=== PATIENT | male | born 1980 | race Two or more races ===

== ENCOUNTER 2023-11-13 11:36 | Inpatient (IN) | payer MEDICAID, OTHER ==
[~2023-11-13] VITALS: Ht 182.9 cm; Wt 103.2 kg
[2023-11-13 12:46] VITALS: PULSE 102; RESP 25; O2SAT 95
[2023-11-13] MEDS ORDERED: VANCOMYCIN PER PHARMACY 0 MG IV SCH (13:15)
[2023-11-13] MEDS: SODIUM CHLORIDE 0.9% 1,000 ML IV ONE ×2 (13:33→15:57)
[2023-11-13] MEDS: PIPERACILLIN-TAZOB 3.375GM 100 ML IV ONE (13:33)
[2023-11-13 13:57] LABS: Basophils # (auto) 0 10 ^3/uL (0-0.2); Basophils % (auto) 0.3 % (0.0-2.0); Eosinophils # (auto) 0 10 ^3/uL (0-0.8); Eosinophils % (auto) 0.2 % (0.0-7.0); Hematocrit 45.6 % (41.0-53.0); Hemoglobin 15.5 g/dL (13.5-17.5); Lymphocytes # (auto) 2.1 10 ^3/uL (0.4-5.4); Lymphocytes % (auto) 14.6 % (10.0-50.0); Mean Corpuscular Hemoglobin 28.7 pg (28.0-32.0); Mean Corpuscular Volume 84.4 fL (80.0-100.0); Monocytes # (auto) 1.1 10 ^3/uL (0-1.3); Neutrophils # (auto) 10.8 10 ^3/uL (1.6-8.6); Neutrophils % (auto) 76.9 % (37.0-80.0); Nucleated Red Blood Cells % 0.1 %; Platelet Count (auto) 374 10^3/uL (140-450); Red Blood Cells 5.41 10^6/uL (4.5-5.90); Red Cell Distribution Width 15.3 % (11.8-14.3); White Blood Cell 14.1 10^3/uL (4.4-10.8)
[2023-11-13] MEDS: VANCOMYCIN 1GM/200ML 200 ML IV SCH (14:00)
[2023-11-13 14:13] LABS: Alanine Aminotransferase 28 U/L (7-40); Albumin 3.9 g/dL (3.2-4.8); Alkaline Phosphatase 85 U/L (46-116); Anion Gap 8 (5-15); Aspartate Aminotransferase 12 U/L (13-40); BUN/Creatinine Ratio 16.2 (10.0-20.0); Blood Urea Nitrogen 11 mg/dL (9-23); Calcium 8.9 mg/dL (8.7-10.4); Carbon Dioxide 23 mmol/L (20-30); Chloride 102 mmol/L (98-107); Glucose 109 mg/dL (74-106); Potassium 3.7 mmol/L (3.5-5.1); Sodium 133 mmol/L (136-145)
[2023-11-13 14:14] LABS: Total Protein 7.8 g/dL (5.7-8.2)
[2023-11-13 14:22] LABS: CRP High Sensitivity 11.53 mg/dL (<1.0)
[2023-11-13 14:57] LABS: Erythrocyte Sedimentation Rate 52 mm/hr (0-20)
[2023-11-13] MEDS: IOHEXOL 300 MG/ML 100ML BOTTLE IJ ONE (15:18)
[2023-11-13] MEDS: diphenhdrAMINE HCL 50 MG/1 ML VL IV ONE (15:56)
[2023-11-13 19:45] VITALS: O2SAT 95
[2023-11-13] MEDS: levoFLOXacin 750MG 150 ML IV ONE (21:19)
[2023-11-13] MEDS ORDERED: ONDANSETRON HCL 4 MG/2 ML VIAL IV PRN (22:15)
[2023-11-13] MEDS ORDERED: HYDROcodone-ACET 5/325MG TAB PO PRN (22:15)
[2023-11-13] MEDS ORDERED: ACETAMINOPHEN 325 MG TAB PO PRN (22:15)
[2023-11-13] MEDS ORDERED: MORPHINE SULFATE INJ 2 MG/ml SYRG IV PRN (22:15)
[2023-11-13] MEDS ORDERED: NITROGLYCERIN 0.4 MG SL TAB SL PRN (22:15)
[2023-11-13] MEDS ORDERED: DOCUSATE SOD 100 MG CAP PO PRN (22:15)
[2023-11-13] MEDS: SODIUM CHLORIDE 0.9% 1,000 ML IV SCH (22:41)
[2023-11-13] MEDS: PIPERACILLIN-TAZOB 3.375GM 100 ML IV SCH (23:57)
[2023-11-14 00:10] VITALS: RESP 20
[2023-11-14 05:00] VITALS: BP 104/71; PULSE 90; RESP 16; TEMP 97; O2SAT 95
[2023-11-14 08:00] VITALS: O2SAT 93
[2023-11-14 09:00] VITALS: BP 138/87; PULSE 73; RESP 18; TEMP 97.2; O2SAT 98
[2023-11-14] MEDS ORDERED: IBUPROFEN 600 MG TAB PO PRN (09:00)
[2023-11-14] MEDS: ENOXAPARIN SOD 40 MG/0.4 ML SYRINGE SC SCH (10:00)
[2023-11-14] MEDS: ZINC SULFATE 220mg CAP or TAB PO SCH (11:03)
[2023-11-14] MEDS: ASCORBIC ACID 500 MG TAB PO SCH (11:03)
[2023-11-14] MEDS: MORPHINE SULFATE 4 MG/ML SYR/VIAL IV PRN (11:11)
[2023-11-14 12:51] VITALS: BP 131/85; PULSE 92; RESP 20; TEMP 99.2; O2SAT 92
[2023-11-14 17:00] VITALS: BP 143/82; PULSE 83; RESP 20; TEMP 97; O2SAT 95
[2023-11-14] MEDS: ALPRAZolam 0.25 MG TAB PO PRN (20:28)
[2023-11-14] MEDS: CARISOPRODOL 350 MG TAB PO PRN (20:29)
[2023-11-15 13:00] VITALS: BP 114/71; PULSE 87; RESP 18; TEMP 97; O2SAT 93
[2023-11-15 20:00] VITALS: PULSE 83; RESP 17; O2SAT 97
[2023-11-15 22:00] VITALS: BP 123/89; PULSE 83; RESP 16; TEMP 97.7; O2SAT 97
[2023-11-16 20:00] VITALS: PULSE 78; RESP 16; O2SAT 99
[2023-11-16 22:00] VITALS: BP 123/93; PULSE 77; RESP 16; TEMP 98.6; O2SAT 94
[2023-11-17] VITALS (7 sets, daily range): BP systolic 98–141; BP diastolic 55–79; PULSE 62–79; RESP 17–19; TEMP 97.4–98.3; O2SAT 93–98
[2023-11-17] MEDS: CLINDAMYCIN 300MG IV 50 ML IV SCH (13:31)
[2023-11-18 08:05] VITALS: PULSE 61; RESP 19; O2SAT 93
[2023-11-18 09:00] VITALS: BP 109/66; PULSE 61; RESP 19; O2SAT 92
[2023-11-18 13:00] VITALS: BP 116/69; PULSE 67; RESP 19; TEMP 98.5; O2SAT 99
[2023-11-18] MEDS ORDERED: SACC250C PO (14:24)
[2023-11-18] MEDS ORDERED: CLIN1CAP70 PO (14:24)
[2023-11-18 17:04] VITALS: BP 109/69; PULSE 66; RESP 17; TEMP 98.6; O2SAT 95
== END 2023-11-18 16:56 | DRG 720 ==
LOC: EDBD 11:36 → ER 11:36 → OVERFLOW 22:17 → WEST WING 23:58
PROVIDERS: ADMIT Nurse Practitioner Family; ATTEND Nurse Practitioner Acute Care
DX: A41.9 Sepsis, unspecified organism (principal); E87.1 Hypo-osmolality and hyponatremia; G82.20 Paraplegia, unspecified; Z74.01 Bed confinement status; E66.9 Obesity, unspecified; F20.9 Schizophrenia, unspecified; H54.62 Unqualified visual loss, left eye, normal vision right eye; L03.116 Cellulitis of left lower limb; L03.115 Cellulitis of right lower limb; B95.62 Methicillin resistant Staphylococcus aureus infection as the cause of diseases classified elsewhere; Z88.1 Allergy status to other antibiotic agents; Z88.5 Allergy status to narcotic agent; Z68.32 Body mass index [BMI] 32.0-32.9, adult
CPT/HCPCS: 36415; 74177; 80053; 83605; 83880; 85025; 85652; 86141; 87040; 87077; 87186; 87205; 96365; 96375; G0378; J1956; J2543; J3490

== ENCOUNTER 2025-02-07 11:22 | Inpatient (IN) | payer OTHER, MEDICAID ==
[~2025-02-07] VITALS: Ht 177.8 cm; Wt 120.2 kg
[~2025-02-07 11:22] MED LIST: CLIN1CAP70 PO; SACC250C PO
--- NOTE | 2025-02-07 11:43 | ED.PDOC ---
History of Present Illness(SKN HPI Comments This is a 44 year old male MERY presenting to the ED with chief complaint of rash. EMS reports patient is coming from [facility] care facility for a worsening rash to the back and buttocks for the past few days. EMS relays that the patient does not get regular cleaning care, but is unsure if his rash is due to developing bed sores. EMS states patient normally sleeps on the floor due to not liking the bedding provided. Patient denies any fever, chills, back pain, or N/V. Chief Complaint: Rash Time Seen by MD: 11:41 Primary Care Provider: UNKNOWN NAME History of Present Illness: Nurses Notes, Toy Stuffer Notes, Medications, Allergies Allergies: Coded Allergies: Vancomycin (Verified Allergy, Intermediate, 11/13/23) HIVES Acetaminophen (Verified Adverse Reaction, Mild, Hives, 11/13/23) Hydrocodone (Verified Adverse Reaction, Mild, Hives, 11/13/23) Tramadol (Verified Adverse Reaction, Mild, Hives, 11/13/23) Home Meds Active Scripts Yeast (S. Boulardii)(S. Cerevi (Florastor) 250 Mg Cap, 250 MG PO DAILY for 21 Days, #2 CAP Prov:MALCOLM HALLMAN DIRECTOR PROCESS 11/18/23 Clindamycin Hcl (Clindamycin Hcl) 300 Mg Cap, 1 CAP PO TID for 10 Days, #30 CAP Prov:MALCOLM HALLMAN DIRECTOR PROCESS 11/18/23 Information Source: Patient, Emergency Med Personnel Mode of Arrival: EMS Severity: Moderate Timing: Days Duration: Since onset Prehospital treatment: None Location: Back, Buttock Mechanism: Spontaneous Onset Developed: Rash Occurence: Indoors Object: None Condition of Object: None Retained Foreign Body: No Wound Type: Other Immunization Status of Animal: NA Tetanus: Unknown Past Medical History PAST MEDICAL HISTORY: Schizophrenia, Seizures Past Medical History (Other): Paraplegic Surgical History: Denies all surgeries Family History Family History: Reviewed,noncontributory to illness Social History Smoker: Non-Smoker Alcohol: Denies ETOH Use Drugs: Denies Drug Use Lives In: Home Constitutional: denies: chills, diaphoresis, fatigue, fever, malaise, sweats, weakness, others EENTM: denies: blurred vision, double vision, ear bleeding, ear discharge, ear drainage, ear pain, ear ringing, eye pain, eye redness, hearing loss, mouth pain, mouth swelling, nasal discharge, nose bleeding, nose congestion, nose pain, photophobia, tearing, throat pain, throat swelling, voice changes, others Respiratory: denies: cough, hemoptysis, orthopnea, SOB at rest, shortness of breath, SOB with excertion, stridor, wheezing, others Cardiovascular: denies: chest pain, dizzy spells, diaphoresis, Dyspnea on exertion, edema, irregular heart beat, left arm pain, lightheadedness, palpitations, PND, syncope, others Gastrointestinal: denies: abdomen distended, abdominal pain, blood streaked bowels, constipated, diarrhea, dysphagia, difficulty swallowing, hematemesis, melena, nausea, poor appetite, poor fluid intake, rectal bleeding, rectal pain, vomiting, others Genitourinary: denies: burning, dysuria, flank pain, frequency, hematuria, incontinence, penile discharge, penile sore, pain, testicle pain, testicle swelling, urgency, others Neurological: denies: dizziness, fainting, headache, left sided numbness, left sided weakness, numbness, paresthesia, pre-existing deficit, right sided numbness, right sided weakness, seizure, speech problems, tingling, tremors, weakness, others Musculoskeletal: denies: back pain, gout, joint pain, joint swelling, muscle pain, muscle stiffness, neck pain, others Integumetry: reports: rash; denies: bruises, change in color, change in hair/nails, dryness, laceration, lesions, lumps, wounds, others Allergic/Immunocompromised: denies: Difficulty Healing, Frequent Infections, Hives, Itching, others Hematologic/Lymphatic: denies: anemia, blood clots, easy bleeding, easy bruising, swollen glands, others Endocrine: denies: excessive hunger, excessive sweating, excessive thirst, excessive urination, flushing, intolerance to cold, intolerance to heat, unexplained weight gain, unexplained weight loss, others Psychiatric: denies: anxiety, bipolar disorder, depression, hopeless, panic disorder, schizophrenia, sleepless, suicidal, others All Other Systems: Reviewed and Negative Physical Exam General Appearance: Moderate Distress, Obese HEENT: Normal ENT Inspection, Pharynx Normal, TMs Normal Neck: Full Range of Motion, Non-Tender, Normal, Normal Inspection Respiratory: Chest Non-Tender, Lungs Clear, No Accessory Muscle Use, No Respiratory Distress, Normal Breath Sounds Cardiovascular: No Edema, No JVD, No Murmur, No Gallop, Normal Peripheral Pulses, Regular Rate/Rhythm Breast Exam: Deferred Gastrointestinal: No Organomegaly, Non Tender, No Pulsatile Mass, Normal Bowel Sounds, Soft Genitalia: Deferred Pelvic: Deferred Rectal: Deferred Extremities: No calf tenderness, Normal capillary refill, No pedal edema Musculoskeletal : Apperance: Normal Neurologic: Alert Cerebellar Function: NOT DONE Reflexes: NOT DONE Skin: Dry, Normal Color, Warm Peripheral Pulses: 3+ Radial (R), 3+ Radial (L) Lymphatic: No Adenopathy Was a procedure done? Was a procedure done?: No Differential Diagnosis (INTG) Differential Diagnosis: Cellulitis X-Ray, Labs, Meds, VS Vital Signs Date Time Temp Pulse Resp B/P (MAP) Pulse Ox O2 Delivery O2 Flow Rate FiO2 02/07/25 16:00 87 17 114/75 (88) 93 02/07/25 14:15 91 17 109/78 (88) 93 02/07/25 12:59 85 15 99 Room Air* 0 21 02/07/25 12:15 98.1 103 20 119/85 (96) 94 98.1 02/07/25 11:29 98.8 74 16 136/87 99 98.8 Lab Test 02/07/25 11:45 Range/Units White Blood Count 10.3 4.4-10.8 10^3/uL Red Blood Count 5.27 4.5-5.90 10^6/uL Hemoglobin 14.8 13.5-17.5 g/dL Hematocrit 44.4 41.0-53.0 % Mean Corpuscular Volume 84.3 80.0-100.0 fL Mean Corpuscular Hemoglobin 28.1 28.0-32.0 pg Mean Corpuscular Hemoglobin Concent 33.3 32.0-36.0 g/dL Red Cell Distribution Width 15.6 H 11.8-14.3 % Platelet Count 523 H 140-450 10^3/uL Mean Platelet Volume 7.9 6.9-10.8 fL Neutrophils (%) (Auto) 64.4 37.0-80.0 % Lymphocytes (%) (Auto) 20.7 10.0-50.0 % Monocytes (%) (Auto) 10.8 0.0-12.0 % Eosinophils (%) (Auto) 3.5 0.0-7.0 % Basophils (%) (Auto) 0.6 0.0-2.0 % Neutrophils # (Auto) 6.7 1.6-8.6 10 ^3/uL Lymphocytes # (Auto) 2.1 0.4-5.4 10 ^3/uL Monocytes # (Auto) 1.1 0-1.3 10 ^3/uL Eosinophils # (Auto) 0.4 0-0.8 10 ^3/uL Basophils # (Auto) 0.1 0-0.2 10 ^3/uL Nucleated Red Blood Cells 0.2 % Prothrombin Time 10.4 9.3-11.8 sec Prothrombin Time INR 0.98 0.9-1.15 Activated Partial Thromboplast Time 31.8 24.5-34.5 SEC Sodium Level 140 136-145 mmol/L Potassium Level 4.1 3.5-5.1 mmol/L Chloride Level 100 98-107 mmol/L Carbon Dioxide Level 30 20-31 mmol/L Anion Gap 10 5-15 Blood Urea Nitrogen 11 9-23 mg/dL Creatinine 0.69 L 0.700-1.30 mg/dL Glomerular Filtration Rate Calc 116 >90 mL/min BUN/Creatinine Ratio 15.9 10.0-20.0 Serum Glucose 91 74-106 mg/dL Lactic Acid Level 2.4 *H 0.4-2.0 mmol/L Calcium Level 9.4 8.7-10.4 mg/dL Total Bilirubin 0.2 0.2-1.0 mg/dL Aspartate Amino Transferase (AST) 21 13-40 U/L Alanine Aminotransferase (ALT) 42 H 7-40 U/L Alkaline Phosphatase 128 H 46-116 U/L Total Protein 8.5 H 5.7-8.2 g/dL Albumin 4.1 3.2-4.8 g/dL Current Medications Medications (Trade) Dose Ordered Sig/Yumiko Route Start Time Stop Time Status Last Admin Cefepime HCl 50 ml @ 12.5 mls/hr ONCE ONCE IV 02/07/25 11:45 02/07/25 15:44 DC 02/07/25 13:07 Sodium Chloride 1,000 ml @ 1,000 mls/hr Q1H ONCE IV 02/07/25 11:45 02/07/25 12:44 DC 02/07/25 13:[address] [address] Ph: [phone] DIAGNOSTIC IMAGING Diagnostic Imaging Report : [id number] Signed PATIENT: TYSON LEWIS ACCT: [id number] UNIT: [id number] : 1980 LOC: ER ROOM / BED: / AGE / SEX: 44 / M ADM STATUS: REG ER SERVICE 1135 ORDERING PHYSICIAN: XENIA MEEK MD PROCEDURE(s): CXRP - CHEST PORTABLE REASON: sob ORDER NUMBER(s): [id number], ACCESSION NUMBER(s): [id number] EXAM: XY CHEST PORTABLE Indication: sob Technique: Single frontal view of the chest was obtained Comparison: None FINDINGS: Lines and Tubes: None Lungs: No focal consolidation. Low lung volumes with bibasilar atelectasis. Pleura: No effusion. No pneumothorax. Cardiomediastinal contours: Unremarkable Bones: No acute osseous abnormality. IMPRESSION: Low lung volumes with bibasilar atelectasis.No acute cardiopulmonary disease. ATED BY: JEAN ORNELAS MD DICTATED DATE/TIME: 02/07/25 1231 SIGNED BY: JEAN ORNELAS MD SIGNED DATE/TIME: 02/07/25 1231 CC: Patient alert. He is obese. Chest x-ray reviewed does not show any acute process. Answering all questions. Chronic condition. He is bed ridden. Possible sepsis. Was given fluids. Was given antibiotics. He does have wound in his buttocks. Explained to the patient. Continue monitoring. Images Reviewed?: Images reviewed and evaluated by me Time of 1ST Reevaluation: 12:40 Reevaluation 1ST: Unchanged Patient Education/Counseling: Diagnosis, Treatment Family Education/Counseling: No Family Present SEPSIS Sepsis Screen Date sepsis recognized/suspect: Feb 07, 2025 Time Sepsis recognized/suspect: 1025 Recent Procedure: No On Antibiotic Therapy: No Respiratory Rate >20: No Heart Rate >90: No Temp<36 C (96.8 F) or >38.3 C: No SBP <90 or MAP <65 mmHG: No New Acute Mental Status Change: No Is the patient on CPAP, BIPAP,: No Physician Orders Chest Portable (02/07/25 11:35) Accucheck (02/07/25 11:35) Blood Culture (02/07/25 11:35) Notify Md If Map <65 Or Bp<90 (02/07/25 11:35) If Map<65 Start Vasopressor (02/07/25 11:35) Sepsis Reassesment After Fluid (02/07/25 12:35) Sodium Chloride 0.9% (02/07/25 11:45) Vital Signs Date Time Temp Pulse Resp B/P (MAP) Pulse Ox O2 Delivery O2 Flow Rate FiO2 02/07/25 16:00 87 17 114/75 (88) 93 02/07/25 14:15 91 17 109/78 (88) 93 02/07/25 12:59 85 15 99 Room Air* 0 21 02/07/25 12:15 98.1 103 20 119/85 (96) 94 98.1 02/07/25 11:29 98.8 74 16 136/87 99 98.8 Laboratory Tests Test 02/07/25 11:45 Lactic Acid Level 2.4 mmol/L (0.4-2.0) *H White Blood Count 10.3 10^3/uL (4.4-10.8) Medications Medications Dose Ordered Sig/Yumiko Route Start Time Stop Time Status Last Admin Dose Admin Cefepime HCl 50 ml @ 12.5 mls/hr ONCE ONCE IV 02/07/25 11:45 02/07/25 15:44 DC 02/07/25 13:07 Sodium Chloride 1,000 ml @ 1,000 mls/hr Q1H ONCE IV 02/07/25 11:45 02/07/25 12:44 DC 02/07/25 13:07 Departure 1 Departure Time of Disposition: 17:40 Impression: Primary Impression: Cellulitis Qualified Codes: L03.90 - Cellulitis, unspecified Additional Impression: Wound infection Disposition: 09 ADMITTED INPATIENT Admit to: Med Surg Condition: Guarded Critical Care Note Critical Care Time?: Yes (90 min-critical care time only) Stability Stability form required: No Heart Score Heart Score: Heart Score Response (Comments) Value History N/A 0 EKG N/A 0 Age N/A 0 Risk Factors N/A 0 Troponin N/A 0 Total 0 I personally scribed for XENIA MEEK MD ([email or web address]) on 02/07/25 at 11:43. Electronically submitted by Pankaj Kenyon ([email or web address]). I personally scribed for XENIA MEEK MD ([email or web address]) on 02/07/25 at 14:22. Electronically submitted by Pankaj Kenyon ([email or web address]). XENIA MEEK MD Feb 07, 2025 11:43
[2025-02-07 12:25] LABS: Hematocrit 44.4 % (41.0-53.0); Hemoglobin 14.8 g/dL (13.5-17.5); Mean Corpuscular Hemoglobin 28.1 pg (28.0-32.0); Mean Corpuscular Volume 84.3 fL (80.0-100.0); Nucleated Red Blood Cells % 0.2 %
--- NOTE | 2025-02-07 12:33 | DVH ---
EXAM: XY CHEST PORTABLE Indication: sob Technique: Single frontal view of the chest was obtained Comparison: None FINDINGS: Lines and Tubes: None Lungs: No focal consolidation. Low lung volumes with bibasilar atelectasis. Pleura: No effusion. No pneumothorax. Cardiomediastinal contours: Unremarkable Bones: No acute osseous abnormality. IMPRESSION: Low lung volumes with bibasilar atelectasis.No acute cardiopulmonary disease.
[2025-02-07 12:37] LABS: Albumin 4.1 g/dL (3.2-4.8); Anion Gap 10 (5-15); BUN/Creatinine Ratio 15.9 (10.0-20.0); Blood Urea Nitrogen 11 mg/dL (9-23); Calcium 9.4 mg/dL (8.7-10.4); Carbon Dioxide 30 mmol/L (20-31); Chloride 100 mmol/L (98-107); Glucose 91 mg/dL (74-106); Potassium 4.1 mmol/L (3.5-5.1); Sodium 140 mmol/L (136-145)
[2025-02-07 12:40] LABS: Alanine Aminotransferase 42 U/L (7-40); Alkaline Phosphatase 128 U/L (46-116); Bilirubin, Total 0.2 mg/dL (0.2-1.0); Total Protein 8.5 g/dL (5.7-8.2)
[2025-02-07 12:45] LABS: INR 0.98 (0.9-1.15); Partial Thromboplastin Time 31.8 SEC (24.5-34.5); Prothrombin Time 10.4 sec (9.3-11.8)
[2025-02-07 12:48] LABS: Lactic Acid w/Reflex 2.4 mmol/L (0.4-2.0)
[2025-02-07 12:59] VITALS: PULSE 85; RESP 15; O2SAT 99
[2025-02-07] MEDS: SODIUM CHLORIDE 0.9% 1,000 ML IV ONE ×2 (13:07→14:06)
[2025-02-07] MEDS: CEFEPIME 1GM/50ML 50 ML IV ONE (13:07)
[2025-02-07] MEDS ORDERED: HYDROcodone-ACET 5/325MG TAB PO PRN (16:15)
[2025-02-07] MEDS ORDERED: NITROGLYCERIN 0.4 MG SL TAB SL PRN (16:15)
[2025-02-07] MEDS ORDERED: ACETAMINOPHEN 325 MG TAB PO PRN (16:15)
[2025-02-07] MEDS ORDERED: MORPHINE SULFATE INJ 2 MG/ml SYRG IV PRN (16:15)
[2025-02-07] MEDS: PIPERACILLIN-TAZOB 3.375GM 100 ML IV ONE (16:39)
[2025-02-07] MEDS ORDERED: MORPHINE SULFATE 4 MG/ML SYR/VIAL IV PRN (17:15)
[2025-02-07 17:19] LABS: Urine Protein, UAD Negative (Negative)
[2025-02-08] VITALS (8 sets, daily range): BP systolic 106–142; BP diastolic 66–90; PULSE 77–99; RESP 16–20; TEMP 97.8–99; O2SAT 91–96
[2025-02-08] MEDS: MORPHINE SULFATE 4 MG/ML SYR/VIAL IV PRN (01:23)
[2025-02-08 06:58] LABS: Hematocrit 39.5 % (41.0-53.0); Hemoglobin 13.3 g/dL (13.5-17.5); Mean Corpuscular Hemoglobin 28.1 pg (28.0-32.0); Mean Corpuscular Volume 83.4 fL (80.0-100.0); Nucleated Red Blood Cells % 0.2 %
[2025-02-08 07:17] LABS: Alanine Aminotransferase 33 U/L (7-40); Albumin 3.5 g/dL (3.2-4.8); Alkaline Phosphatase 113 U/L (46-116); Anion Gap 10 (5-15); BUN/Creatinine Ratio 14.1 (10.0-20.0); Blood Urea Nitrogen 11 mg/dL (9-23); Calcium 8.7 mg/dL (8.7-10.4); Carbon Dioxide 27 mmol/L (20-31); Chloride 104 mmol/L (98-107); Potassium 4.1 mmol/L (3.5-5.1); Sodium 141 mmol/L (136-145); Total Protein 7.2 g/dL (5.7-8.2)
[2025-02-08 07:19] LABS: Bilirubin, Total 0.2 mg/dL (0.2-1.0); Glucose 115 mg/dL (74-106)
[2025-02-08] MEDS: ENOXAPARIN SOD 40 MG/0.4 ML SYRINGE SC SCH (10:00)
--- NOTE | 2025-02-08 17:34 | DVHHP2 ---
History of Present Illness HPI This is a 44 year old male PABLOA presenting to the ED with chief complaint of rash. EMS reports patient is coming from [facility] facility for a worsening rash to the back and buttocks for the past few days. EMS relays that the patient does not get regular cleaning care, but is unsure if his rash is due to developi ng bed sores. EMS states patient normally sleeps on the floor due to not liking the bedding provided. Patient denies any fever, chills, back pain, or N/V. Home Meds Active Scripts Yeast (S. Boulardii)(S. Cerevi (Florastor) 250 Mg Cap, 250 MG PO DAILY for 21 Days, #2 CAP Prov:MALCOLM HALLMAN CAFETERIA ASSOCIATE 11/18/23 Clindamycin Hcl (Clindamycin Hcl) 300 Mg Cap, 1 CAP PO TID for 10 Days, #30 CAP Prov:MALCOLM HALLMAN CAFETERIA ASSOCIATE 11/18/23 Past Medical History Patient Family History: Diabetes mellitus FATHER Review of Systems Constitutional: No symptom reported Ears, Nose, & Throat: No symptom reported Eyes: No symptom reported Pulmonary/Respiratory: No symptom reported Cardiovascular: No symptom reported H&P Exam Vital Signs Vital Signs Date Time Temp Pulse Resp B/P (MAP) Pulse Ox O2 Delivery O2 Flow Rate FiO2 02/08/25 13:00 98.7 77 18 113/66 (82) 91 98.7 02/08/25 08:00 Room Air* 0 21 General Appeara: Well developed, Well nourished SEPSIS Sepsis Screen Date sepsis recognized/suspect: Feb 07, 2025 Time Sepsis recognized/suspect: 9 Recent Procedure: No On Antibiotic Therapy: No Respiratory Rate >20: No Heart Rate >90: Yes Temp<36 C (96.8 F) or >38.3 C: No SBP <90 or MAP <65 mmHG: No New Acute Mental Status Change: No Is the patient on CPAP, BIPAP,: No Vital Signs Date Time Temp Pulse Resp B/P (MAP) Pulse Ox O2 Delivery O2 Flow Rate FiO2 02/08/25 13:00 98.7 77 18 113/66 (82) 91 98.7 02/08/25 10:04 77 18 113/66 Laboratory Tests Test 02/08/25 06:24 White Blood Count 8.6 10^3/uL (4.4-10.8) Labs/Xrays Labs Test 02/08/25 06:24 02/07/25 16:50 02/07/25 11:45 Range/Units White Blood Count 8.6 4.4-10.8 10^3/uL Red Blood Count 4.73 4.5-5.90 10^6/uL Hemoglobin 13.3 L 13.5-17.5 g/dL Hematocrit 39.5 #L 41.0-53.0 % Mean Corpuscular Volume 83.4 80.0-100.0 fL Mean Corpuscular Hemoglobin 28.1 28.0-32.0 pg Mean Corpuscular Hemoglobin Concent 33.7 32.0-36.0 g/dL Red Cell Distribution Width 15.4 H 11.8-14.3 % Platelet Count 453 H 140-450 10^3/uL Mean Platelet Volume 7.8 6.9-10.8 fL Neutrophils (%) (Auto) 51.5 37.0-80.0 % Lymphocytes (%) (Auto) 30.5 10.0-50.0 % Monocytes (%) (Auto) 12.7 H 0.0-12.0 % Eosinophils (%) (Auto) 4.7 0.0-7.0 % Basophils (%) (Auto) 0.6 0.0-2.0 % Neutrophils # (Auto) 4.4 1.6-8.6 10 ^3/uL Lymphocytes # (Auto) 2.6 0.4-5.4 10 ^3/uL Monocytes # (Auto) 1.1 0-1.3 10 ^3/uL Eosinophils # (Auto) 0.4 0-0.8 10 ^3/uL Basophils # (Auto) 0.1 0-0.2 10 ^3/uL Nucleated Red Blood Cells 0.2 % Sodium Level 141 136-145 mmol/L Potassium Level 4.1 3.5-5.1 mmol/L Chloride Level 104 98-107 mmol/L Carbon Dioxide Level 27 20-31 mmol/L Anion Gap 10 5-15 Blood Urea Nitrogen 11 9-23 mg/dL Creatinine 0.78 0.700-1.30 mg/dL Glomerular Filtration Rate Calc 111 >90 mL/min BUN/Creatinine Ratio 14.1 10.0-20.0 Serum Glucose 115 H 74-106 mg/dL Calcium Level 8.7 8.7-10.4 mg/dL Total Bilirubin 0.2 0.2-1.0 mg/dL Aspartate Amino Transferase (AST) 20 13-40 U/L Alanine Aminotransferase (ALT) 33 7-40 U/L Alkaline Phosphatase 113 46-116 U/L Total Protein 7.2 5.7-8.2 g/dL Albumin 3.5 3.2-4.8 g/dL Urine Color Yellow Yellow Urine Clarity Clear Clear Urine pH 5.5 5.0-9.0 Urine Specific [place] 1.018 1.001-1.035 Urine Protein Negative Negative Urine Ketones Negative Negative Urine Blood Negative Negative /uL Urine Nitrite Negative Negative Urine Bilirubin Negative Negative Urine Urobilinogen Normal Negative mg/dL Urine Leukocyte Esterase 2+ Negative /uL Urine RBC <1 0 - 3 /hpf Urine Microscopic WBC 3 0-3 /HPF Urine Squamous Epithelial Cells Few <5 /hpf Urine Bacteria None seen None Seen /hpf Urine Mucus Few None Seen Urine Glucose Normal Normal mg/dL Prothrombin Time 10.4 9.3-11.8 sec Prothrombin Time INR 0.98 0.9-1.15 Activated Partial Thromboplast Time 31.8 24.5-34.5 SEC Lactic Acid Level 2.4 *H 0.4-2.0 mmol/L Microbiology Date/Time Source Procedure Growth Status 02/08/25 01:30 Nose MRSA Screen - Final Methicillin Resistant S.aureus Complete 02/07/25 12:12 Blood Blood Culture - Preliminary NO GROWTH AFTER 24 HOURS OF INCUBATION. Resulted Assessment/Plan Primary Diagnosis LATE NOTE ENTRY FOR SERVICES RENDERED ON 02/07/2025 Cellulitis, buttock and back sepsis with cellulitis obesity weakness admitted and started on iv bx wound care consult if needed Plan discussed with: Patient HAWK GAMA Feb 08, 2025 17:34
[2025-02-08] MEDS ORDERED: VANCOMYCIN PER PHARMACY 0 MG IV SCH (21:45)
[2025-02-08] MEDS: PIPERACILLIN-TAZOB 3.375GM 100 ML IV SCH (23:23)
[2025-02-09] VITALS (7 sets, daily range): BP systolic 113–132; BP diastolic 72–86; PULSE 67–86; RESP 17–18; TEMP 97.6–98.3; O2SAT 92–98
[2025-02-09] MEDS: levETIRAcetam 500 MG TAB PO SCH (10:00)
--- NOTE | 2025-02-09 22:40 | DVHPN2 ---
Progress Note Date Seen: Feb 08, 2025 Medical Necessity Reason Pt with a Central, PICC or Fol: No Subjective Review of Systems: HEENT:Normal, CVS:Normal Objective vital signs Vital Sign Date Time Temp Pulse Resp B/P (MAP) Pulse Ox O2 Delivery O2 Flow Rate FiO2 02/09/25 20:00 77 18 96 Room Air* 0 21 02/09/25 13:00 98.2 132/78 (96) 98.2 Total Intake and Output 02/08/25 02/08/25 02/09/25 15:00 23:00 07:00 Intake Total 1400 ml 1405 ml Output Total 650 ml 700 ml 675 ml Balance -650 ml 700 ml 730 ml medications Current Medications Medications Dose Ordered Sig/Yumiko Route Start Time Stop Time Status Last Admin Dose Admin Acetaminophen/ Hydrocodone Bitart 1 tab Q4HP PRN PO 02/07/25 16:15 Hold Ondansetron HCl 4 mg Q4HP PRN IV 02/07/25 16:15 Enoxaparin Sodium 40 mg DAILY SC 02/08/25 10:00 Acetaminophen 650 mg Q6HP PRN PO 02/07/25 16:15 Hold Morphine Sulfate 2 mg Q4HPRN PRN IV 02/07/25 16:15 02/09/25 11:02 2 MG Nitroglycerin 0.4 mg Q5MINP PRN SL 02/07/25 16:15 Morphine Sulfate 2 mg Q30M PRN IV 02/07/25 17:15 Piperacillin Sod/ Tazobactam Sod 100 ml @ 25 mls/hr Q6HR IV 02/09/25 00:00 02/09/25 18:00 25 MLS/HR Vancomycin HCl 0 ml @ 0 mls/hr PER PHARMACY IV 02/08/25 21:45 Hold Levetiracetam 1,000 mg BID PO 02/09/25 10:00 02/09/25 21:54 1,000 MG Examination: GENERAL:Normal, HEENT:Normal, NECK:Normal, LUNGS:Normal, CVS:Normal, ABDOMEN:Normal, MSK:Normal, SKIN:Normal, NEURO:Normal laboratory and microbiology Laboratory Tests 02/08/25 06:24 Test 02/08/25 06:24 Range/Units Serum Glucose 115 H 74-106 mg/dL Microbiology Date/Time Source Procedure Growth Status 02/08/25 01:30 Nose MRSA Screen - Final Methicillin Resistant S.aureus Complete 02/07/25 12:12 Blood Blood Culture - Preliminary NO GROWTH AFTER 48 HOURS OF INCUBATION. Resulted Labs and/or images reviewed: Labs reviewed by me, Image(s) reviewed by me Problem List/Assessment/Plan Problem List/Assessment/Plan LATE NOTE ENTRY FOR SERVICES RENDERED ON 02/07/2025 Cellulitis, buttock and back sepsis with cellulitis obesity weakness admitted and started on iv bx wound care consult if needed Plan discussed with: Patient My Orders My Orders Orders - HAWK GAMA DO Procedure Category Date Status Time Levetiracetam Tablet PHA 02/09/25 In Process (Keppra Tablet) 10:00 Basic Metabolic Panel LAB 02/10/25 Verified 04:00 Dietary Evaluation Review Comments: Nutrition Recommendation: 1) Santos 1 pk BID 2) Ensure High Protein 240ml BID 3) Monitor PO intake, lab values, weight trend, and I/O Expected Outcomes/Goals: Wound to improve FU 3-5 days Interpretation of weight loss: up to 20% in 1 year Fluid Accumulation (N/A): N/A Protein Calorie Malnutrition: N/A HAWK GAMA DO Feb 09, 2025 22:40
--- NOTE | 2025-02-09 22:40 | DVHPN2 ---
Progress Note Date Seen: Feb 09, 2025 Medical Necessity Reason Pt with a Central, PICC or Fol: No Subjective Review of Systems: HEENT:Normal, CVS:Normal Objective vital signs Vital Sign Date Time Temp Pulse Resp B/P (MAP) Pulse Ox O2 Delivery O2 Flow Rate FiO2 02/09/25 20:00 77 18 96 Room Air* 0 21 02/09/25 13:00 98.2 132/78 (96) 98.2 Total Intake and Output 02/08/25 02/08/25 02/09/25 15:00 23:00 07:00 Intake Total 1400 ml 1405 ml Output Total 650 ml 700 ml 675 ml Balance -650 ml 700 ml 730 ml medications Current Medications Medications Dose Ordered Sig/Yumiko Route Start Time Stop Time Status Last Admin Dose Admin Acetaminophen/ Hydrocodone Bitart 1 tab Q4HP PRN PO 02/07/25 16:15 Hold Ondansetron HCl 4 mg Q4HP PRN IV 02/07/25 16:15 Enoxaparin Sodium 40 mg DAILY SC 02/08/25 10:00 Acetaminophen 650 mg Q6HP PRN PO 02/07/25 16:15 Hold Morphine Sulfate 2 mg Q4HPRN PRN IV 02/07/25 16:15 02/09/25 11:02 2 MG Nitroglycerin 0.4 mg Q5MINP PRN SL 02/07/25 16:15 Morphine Sulfate 2 mg Q30M PRN IV 02/07/25 17:15 Piperacillin Sod/ Tazobactam Sod 100 ml @ 25 mls/hr Q6HR IV 02/09/25 00:00 02/09/25 18:00 25 MLS/HR Vancomycin HCl 0 ml @ 0 mls/hr PER PHARMACY IV 02/08/25 21:45 Hold Levetiracetam 1,000 mg BID PO 02/09/25 10:00 02/09/25 21:54 1,000 MG Examination: GENERAL:Normal, HEENT:Normal, NECK:Normal laboratory and microbiology Laboratory Tests 02/08/25 06:24 Test 02/08/25 06:24 Range/Units Serum Glucose 115 H 74-106 mg/dL Microbiology Date/Time Source Procedure Growth Status 02/08/25 01:30 Nose MRSA Screen - Final Methicillin Resistant S.aureus Complete 02/07/25 12:12 Blood Blood Culture - Preliminary NO GROWTH AFTER 48 HOURS OF INCUBATION. Resulted Problem List/Assessment/Plan Problem List/Assessment/Plan Cellulitis, buttock and back sepsis with cellulitis obesity weakness admitted and started on iv bx wound care consult if needed Plan discussed with: Patient My Orders My Orders Orders - HAWK GAMA DO Procedure Category Date Status Time Levetiracetam Tablet PHA 02/09/25 In Process (Keppra Tablet) 10:00 Basic Metabolic Panel LAB 02/10/25 Verified 04:00 Dietary Evaluation Review Comments: Nutrition Recommendation: 1) Santos 1 pk BID 2) Ensure High Protein 240ml BID 3) Monitor PO intake, lab values, weight trend, and I/O Expected Outcomes/Goals: Wound to improve FU 3-5 days Interpretation of weight loss: up to 20% in 1 year Fluid Accumulation (N/A): N/A Protein Calorie Malnutrition: N/A HAWK GAMA DO Feb 09, 2025 22:40
[2025-02-10 01:00] VITALS: BP 121/89; PULSE 74; RESP 18; TEMP 97.9; O2SAT 93
[2025-02-10 05:00] VITALS: BP 142/91; PULSE 74; RESP 19; TEMP 97.4; O2SAT 95
[2025-02-10 09:00] VITALS: BP 126/81; PULSE 70; RESP 18; TEMP 97.5; O2SAT 96
[2025-02-10] MEDS: MUPIROCIN 2% OINT 15gm or 22gm FOR MRSA NARES TOP SCH (10:00)
[2025-02-10 10:35] LABS: Chloride 103 mmol/L (98-107); Potassium 4.3 mmol/L (3.5-5.1); Sodium 138 mmol/L (136-145)
[2025-02-10 10:36] LABS: Anion Gap 8 (5-15); Carbon Dioxide 27 mmol/L (20-31)
[2025-02-10 10:37] LABS: Calcium 9.1 mg/dL (8.7-10.4)
[2025-02-10 10:41] LABS: BUN/Creatinine Ratio 20.0 (10.0-20.0); Blood Urea Nitrogen 12 mg/dL (9-23); Glucose 89 mg/dL (74-106)
--- NOTE | 2025-02-10 11:31 | DVHPN2 ---
Progress Note Date Seen: Feb 09, 2025 Medical Necessity Reason Pt with a Central, PICC or Fol: No Objective vital signs Vital Sign Date Time Temp Pulse Resp B/P (MAP) Pulse Ox O2 Delivery O2 Flow Rate FiO2 02/10/25 09:00 97.5 70 18 126/81 (96) 96 97.5 02/10/25 08:00 Room Air* 0 21 Total Intake and Output 02/09/25 02/09/25 02/10/25 15:00 23:00 07:00 Intake Total 1300 ml 720 ml Output Total 1125 ml Balance 1300 ml -405 ml medications Current Medications Medications Dose Ordered Sig/Yumiko Route Start Time Stop Time Status Last Admin Dose Admin Acetaminophen/ Hydrocodone Bitart 1 tab Q4HP PRN PO 02/07/25 16:15 Hold Ondansetron HCl 4 mg Q4HP PRN IV 02/07/25 16:15 Enoxaparin Sodium 40 mg DAILY SC 02/08/25 10:00 Acetaminophen 650 mg Q6HP PRN PO 02/07/25 16:15 Hold Morphine Sulfate 2 mg Q4HPRN PRN IV 02/07/25 16:15 02/09/25 11:02 2 MG Nitroglycerin 0.4 mg Q5MINP PRN SL 02/07/25 16:15 Morphine Sulfate 2 mg Q30M PRN IV 02/07/25 17:15 Piperacillin Sod/ Tazobactam Sod 100 ml @ 25 mls/hr Q6HR IV 02/09/25 00:00 02/09/25 18:00 25 MLS/HR Vancomycin HCl 0 ml @ 0 mls/hr PER PHARMACY IV 02/08/25 21:45 Hold Levetiracetam 1,000 mg BID PO 02/09/25 10:00 02/10/25 10:39 1,000 MG Mupirocin 1 applic BID TOP 02/10/25 10:00 02/15/25 09:59 02/10/25 10:00 1 APPLIC laboratory and microbiology Laboratory Tests 02/10/25 10:13 02/08/25 06:24 Test 02/10/25 10:13 Range/Units Serum Glucose 89 74-106 mg/dL Microbiology Date/Time Source Procedure Growth Status 02/08/25 01:30 Nose MRSA Screen - Final Methicillin Resistant S.aureus Complete 02/07/25 12:12 Blood Blood Culture - Preliminary NO GROWTH AFTER 48 HOURS OF INCUBATION. Resulted Labs and/or images reviewed: Labs reviewed by me, Image(s) reviewed by me Problem List/Assessment/Plan Problem List/Assessment/Plan Cellulitis, buttock and back, failed outpatient tx sepsis with cellulitis obesity weakness non-compliance admitted and started on iv bx wound care consult pain control Plan discussed with: Patient My Orders My Orders Orders - HAWK GAMA DO Procedure Category Date Status Time Mupirocin 2% Oint PHA 02/10/25 In Process Mrsa Nares (Bactroban 10:00 Dietary Evaluation Review Comments: Nutrition Recommendation: 1) Santos 1 pk BID 2) Ensure High Protein 240ml BID 3) Monitor PO intake, lab values, weight trend, and I/O Expected Outcomes/Goals: Wound to improve FU 3-5 days Interpretation of weight loss: up to 20% in 1 year Fluid Accumulation (N/A): N/A Protein Calorie Malnutrition: N/A HAWK GAMA DO Feb 10, 2025 11:31
--- NOTE | 2025-02-10 11:32 | DVHPN2 ---
Progress Note Date Seen: Feb 10, 2025 Medical Necessity Reason Pt with a Central, PICC or Fol: No Objective vital signs Vital Sign Date Time Temp Pulse Resp B/P (MAP) Pulse Ox O2 Delivery O2 Flow Rate FiO2 02/10/25 09:00 97.5 70 18 126/81 (96) 96 97.5 02/10/25 08:00 Room Air* 0 21 Total Intake and Output 02/09/25 02/09/25 02/10/25 15:00 23:00 07:00 Intake Total 1300 ml 720 ml Output Total 1125 ml Balance 1300 ml -405 ml medications Current Medications Medications Dose Ordered Sig/Yumiko Route Start Time Stop Time Status Last Admin Dose Admin Acetaminophen/ Hydrocodone Bitart 1 tab Q4HP PRN PO 02/07/25 16:15 Hold Ondansetron HCl 4 mg Q4HP PRN IV 02/07/25 16:15 Enoxaparin Sodium 40 mg DAILY SC 02/08/25 10:00 Acetaminophen 650 mg Q6HP PRN PO 02/07/25 16:15 Hold Morphine Sulfate 2 mg Q4HPRN PRN IV 02/07/25 16:15 02/09/25 11:02 2 MG Nitroglycerin 0.4 mg Q5MINP PRN SL 02/07/25 16:15 Morphine Sulfate 2 mg Q30M PRN IV 02/07/25 17:15 Piperacillin Sod/ Tazobactam Sod 100 ml @ 25 mls/hr Q6HR IV 02/09/25 00:00 02/09/25 18:00 25 MLS/HR Vancomycin HCl 0 ml @ 0 mls/hr PER PHARMACY IV 02/08/25 21:45 Hold Levetiracetam 1,000 mg BID PO 02/09/25 10:00 02/10/25 10:39 1,000 MG Mupirocin 1 applic BID TOP 02/10/25 10:00 02/15/25 09:59 02/10/25 10:00 1 APPLIC laboratory and microbiology Laboratory Tests 02/10/25 10:13 02/08/25 06:24 Test 02/10/25 10:13 Range/Units Serum Glucose 89 74-106 mg/dL Microbiology Date/Time Source Procedure Growth Status 02/08/25 01:30 Nose MRSA Screen - Final Methicillin Resistant S.aureus Complete 02/07/25 12:12 Blood Blood Culture - Preliminary NO GROWTH AFTER 48 HOURS OF INCUBATION. Resulted Labs and/or images reviewed: Labs reviewed by me, Image(s) reviewed by me Problem List/Assessment/Plan Problem List/Assessment/Plan Cellulitis, buttock and back, failed outpatient tx sepsis with cellulitis obesity weakness admitted and started on iv bx wound care consult if needed Plan discussed with: Patient My Orders My Orders Orders - HAWK GAMA DO Procedure Category Date Status Time Mupirocin 2% Oint PHA 02/10/25 In Process Mrsa Nares (Bactroban 10:00 Dietary Evaluation Review Comments: Nutrition Recommendation: 1) Santos 1 pk BID 2) Ensure High Protein 240ml BID 3) Monitor PO intake, lab values, weight trend, and I/O Expected Outcomes/Goals: Wound to improve FU 3-5 days Interpretation of weight loss: up to 20% in 1 year Fluid Accumulation (N/A): N/A Protein Calorie Malnutrition: N/A HAWK GAMA DO Feb 10, 2025 11:32
[2025-02-10 13:00] VITALS: BP 117/78; PULSE 84; RESP 18; TEMP 98; O2SAT 93
[2025-02-10 17:00] VITALS: BP 104/74; PULSE 86; RESP 19; TEMP 98.3; O2SAT 97
[2025-02-10 21:00] VITALS: BP 116/69; PULSE 73; RESP 18; TEMP 97.8; O2SAT 92
[2025-02-11] VITALS (7 sets, daily range): BP systolic 103–128; BP diastolic 69–85; PULSE 69–94; RESP 16–20; TEMP 97.2–98; O2SAT 94–100
[2025-02-11] MEDS: ONDANSETRON HCL 4 MG/2 ML VIAL IV PRN (22:18)
--- NOTE | 2025-02-11 23:38 | DVHPN2 ---
Progress Note Date Seen: Feb 11, 2025 Medical Necessity Reason Pt with a Central, PICC or Fol: No Objective vital signs Vital Sign Date Time Temp Pulse Resp B/P (MAP) Pulse Ox O2 Delivery O2 Flow Rate FiO2 02/11/25 23:16 75 15 127/82 02/11/25 20:00 Room Air* 0 21 02/11/25 17:00 98.0 94 98.0 Total Intake and Output 02/10/25 02/10/25 02/11/25 15:00 23:00 07:00 Intake Total 1750 ml 900 ml Output Total 1050 ml 800 ml Balance 700 ml 100 ml medications Current Medications Medications Dose Ordered Sig/Yumiko Route Start Time Stop Time Status Last Admin Dose Admin Acetaminophen/ Hydrocodone Bitart 1 tab Q4HP PRN PO 02/07/25 16:15 Hold Ondansetron HCl 4 mg Q4HP PRN IV 02/07/25 16:15 02/11/25 22:18 4 MG Enoxaparin Sodium 40 mg DAILY SC 02/08/25 10:00 Acetaminophen 650 mg Q6HP PRN PO 02/07/25 16:15 Hold Morphine Sulfate 2 mg Q4HPRN PRN IV 02/07/25 16:15 02/11/25 22:25 2 MG Nitroglycerin 0.4 mg Q5MINP PRN SL 02/07/25 16:15 Morphine Sulfate 2 mg Q30M PRN IV 02/07/25 17:15 Piperacillin Sod/ Tazobactam Sod 100 ml @ 25 mls/hr Q6HR IV 02/09/25 00:00 02/11/25 18:01 25 MLS/HR Vancomycin HCl 0 ml @ 0 mls/hr PER PHARMACY IV 02/08/25 21:45 Hold Levetiracetam 1,000 mg BID PO 02/09/25 10:00 02/11/25 22:09 1,000 MG Mupirocin 1 applic BID TOP 02/10/25 10:00 02/15/25 09:59 02/11/25 08:49 1 APPLIC laboratory and microbiology Laboratory Tests 02/10/25 10:13 02/08/25 06:24 Test 02/10/25 10:13 Range/Units Serum Glucose 89 74-106 mg/dL Microbiology Date/Time Source Procedure Growth Status 02/08/25 01:30 Nose MRSA Screen - Final Methicillin Resistant S.aureus Complete 02/07/25 12:12 Blood Blood Culture - Preliminary NO GROWTH AFTER 72 HOURS OF INCUBATION. 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
[2025-02-12 05:00] VITALS: BP 131/78; PULSE 68; RESP 18; TEMP 98.7; O2SAT 94
[2025-02-12 08:00] VITALS: PULSE 84; RESP 18
[2025-02-12 09:11] VITALS: BP 110/80; PULSE 84; RESP 18; TEMP 97.9; O2SAT 93
[2025-02-12 13:00] VITALS: BP 120/84; PULSE 67; RESP 16; TEMP 98.7; O2SAT 91
[2025-02-12 20:00] VITALS: PULSE 71; RESP 16; O2SAT 91
[2025-02-12 21:00] VITALS: BP 113/69; PULSE 71; RESP 17; TEMP 98.1; O2SAT 91
[2025-02-13 08:00] VITALS: PULSE 67; RESP 17; O2SAT 95
[2025-02-13 09:00] VITALS: BP 116/82; PULSE 72; RESP 18; TEMP 98.6; O2SAT 97
[2025-02-13 17:00] VITALS: BP 126/85; PULSE 69; RESP 20; TEMP 98.3; O2SAT 92
[2025-02-13 20:00] VITALS: RESP 16
[2025-02-13 21:00] VITALS: BP 113/74; PULSE 65; RESP 19; TEMP 97.8; O2SAT 97
[2025-02-14 05:00] VITALS: BP 128/87; PULSE 68; RESP 19; TEMP 97.9; O2SAT 98
[2025-02-14 09:00] VITALS: BP 126/92; PULSE 72; RESP 18; TEMP 97.8; O2SAT 93
[2025-02-14 13:00] VITALS: BP 117/81; PULSE 72; RESP 18; TEMP 98.4; O2SAT 93
[2025-02-14 17:00] VITALS: BP 116/84; PULSE 85; RESP 18; TEMP 97.7; O2SAT 93
[2025-02-14 20:00] VITALS: RESP 18
[2025-02-14 21:00] VITALS: BP 130/86; PULSE 69; RESP 16; TEMP 98; O2SAT 93
[2025-02-15 08:39] VITALS: BP 126/91; PULSE 74; RESP 18; TEMP 97.4; O2SAT 94
[2025-02-15 13:00] VITALS: BP 130/89; PULSE 71; RESP 18; TEMP 97.8; O2SAT 96
[2025-02-15 17:00] VITALS: BP 128/93; PULSE 72; RESP 18; TEMP 97.3; O2SAT 95
[2025-02-15 21:00] VITALS: BP 121/81; PULSE 73; RESP 18; TEMP 98.2; O2SAT 93
[2025-02-16 01:00] VITALS: BP 148/96; PULSE 77; RESP 18; TEMP 98.4; O2SAT 94
[2025-02-16] MEDS: PIPERACILLIN-TAZOB 3.375GM 100 ML IV SCH (03:16)
[2025-02-16 08:00] VITALS: PULSE 90; RESP 20
[2025-02-16 09:00] VITALS: BP 129/89; PULSE 90; RESP 20; TEMP 96.6; O2SAT 95
[2025-02-16 13:00] VITALS: BP 135/88; PULSE 70; RESP 70; TEMP 96.9; O2SAT 95
[2025-02-16 17:00] VITALS: BP 145/88; PULSE 79; RESP 20; TEMP 97.4; O2SAT 96
[2025-02-16 21:00] VITALS: BP 101/72; PULSE 72; RESP 18; TEMP 97.8; O2SAT 95
[2025-02-16] MEDS: MORPHINE SULFATE INJ 2 MG/ml SYRG ONE (22:12)
[2025-02-16] MEDS: MORPHINE SULFATE INJ 2 MG/ml SYRG IV ONE (22:16)
[2025-02-17] VITALS (7 sets, daily range): BP systolic 114–136; BP diastolic 66–99; PULSE 72–87; RESP 18–20; TEMP 97.6–98.2; O2SAT 92–97
[2025-02-17] MEDS: MORPHINE SULFATE 4 MG/ML SYR/VIAL IV PRN (12:07)
[2025-02-18] VITALS (7 sets, daily range): BP systolic 99–130; BP diastolic 69–88; PULSE 62–89; RESP 17–20; TEMP 97.6–98.9; O2SAT 94–95
[2025-02-19 00:23] VITALS: BP 112/78; PULSE 66; RESP 18; TEMP 97.8; O2SAT 96
[2025-02-19 08:00] VITALS: PULSE 72; RESP 20; O2SAT 96
[2025-02-19 13:05] VITALS: BP 111/74; PULSE 73; RESP 18; TEMP 98.1; O2SAT 93
--- NOTE | 2025-02-19 16:45 | DVHPN2 ---
Progress Note Date Seen: Feb 19, 2025 Medical Necessity Reason Pt with a Central, PICC or Fol: No Objective vital signs Vital Sign Date Time Temp Pulse Resp B/P (MAP) Pulse Ox O2 Delivery O2 Flow Rate FiO2 02/19/25 14:01 73 18 111/74 02/19/25 13:05 98.1 93 98.1 02/19/25 08:00 Room Air* 0 21 Total Intake and Output 02/18/25 02/18/25 02/19/25 15:00 23:00 07:00 Intake Total 700 ml 1700 ml Output Total 625 ml 1750 ml Balance 75 ml -50 ml medications Current Medications Medications Dose Ordered Sig/Yumiko Route Start Time Stop Time Status Last Admin Dose Admin Acetaminophen/ Hydrocodone Bitart 1 tab Q4HP PRN PO 02/07/25 16:15 Hold Ondansetron HCl 4 mg Q4HP PRN IV 02/07/25 16:15 02/11/25 22:18 4 MG Acetaminophen 650 mg Q6HP PRN PO 02/07/25 16:15 Hold Nitroglycerin 0.4 mg Q5MINP PRN SL 02/07/25 16:15 Vancomycin HCl 0 ml @ 0 mls/hr PER PHARMACY IV 02/08/25 21:45 Hold Levetiracetam 1,000 mg BID PO 02/09/25 10:00 02/19/25 09:18 1,000 MG Piperacillin Sod/ Tazobactam Sod 100 ml @ 25 mls/hr Q6H IV 02/16/25 03:00 02/19/25 09:18 25 MLS/HR Morphine Sulfate 2 mg Q4HPRN PRN IV 02/17/25 11:45 02/19/25 14:01 2 MG Examination: GENERAL:Normal laboratory and microbiology Laboratory Tests 02/10/25 10:13 02/08/25 06:24 Test 02/10/25 10:13 Range/Units Serum Glucose 89 74-106 mg/dL Microbiology Date/Time Source Procedure Growth Status 02/08/25 01:30 Nose MRSA Screen - Final Methicillin Resistant S.aureus Complete 02/07/25 12:12 Blood Blood Culture - Final NO GROWTH AFTER 5 DAYS OF INCUBATION. Complete Labs and/or images reviewed: Labs reviewed by me, Image(s) reviewed by me Problem List/Assessment/Plan Problem List/Assessment/Plan Cellulitis, buttock and back, failed outpatient tx sepsis with cellulitis obesity weakness difficulty ambulating admitted and started on iv bx wound care consult if needed pt may need long-term IV Abx for 3-4 weeks with ceftriaxone Plan discussed with: Patient My Orders My Orders Orders - HAWK GAMA DO Procedure Category Date Status Time * [employer]er CONS 02/18/25 Transmitted Consult Creatinine LAB 02/20/25 Verified 04:00 Complete Blood Count LAB 02/20/25 Verified 04:00 Dietary Evaluation Review Comments: Nutrition Recommendation: 1) Santos 1 pk BID 2) Ensure High Protein 240ml BID 3) Monitor PO intake, lab values, weight trend, and I/O Expected Outcomes/Goals: Wound to improve FU 3-5 days Interpretation of weight loss: up to 20% in 1 year Fluid Accumulation (N/A): N/A Protein Calorie Malnutrition: N/A HAWK GAMA DO Feb 19, 2025 16:44
--- NOTE | 2025-02-19 16:52 | DVHPN2 ---
Progress Note Date Seen: Feb 19, 2025 Medical Necessity Reason Pt with a Central, PICC or Fol: No Objective vital signs Vital Sign Date Time Temp Pulse Resp B/P (MAP) Pulse Ox O2 Delivery O2 Flow Rate FiO2 02/19/25 14:01 73 18 111/74 02/19/25 13:05 98.1 93 98.1 02/19/25 08:00 Room Air* 0 21 Total Intake and Output 02/18/25 02/18/25 02/19/25 15:00 23:00 07:00 Intake Total 700 ml 1700 ml Output Total 625 ml 1750 ml Balance 75 ml -50 ml medications Current Medications Medications Dose Ordered Sig/Yumiko Route Start Time Stop Time Status Last Admin Dose Admin Acetaminophen/ Hydrocodone Bitart 1 tab Q4HP PRN PO 02/07/25 16:15 Hold Ondansetron HCl 4 mg Q4HP PRN IV 02/07/25 16:15 02/11/25 22:18 4 MG Acetaminophen 650 mg Q6HP PRN PO 02/07/25 16:15 Hold Nitroglycerin 0.4 mg Q5MINP PRN SL 02/07/25 16:15 Vancomycin HCl 0 ml @ 0 mls/hr PER PHARMACY IV 02/08/25 21:45 Hold Levetiracetam 1,000 mg BID PO 02/09/25 10:00 02/19/25 09:18 1,000 MG Piperacillin Sod/ Tazobactam Sod 100 ml @ 25 mls/hr Q6H IV 02/16/25 03:00 02/19/25 09:18 25 MLS/HR Morphine Sulfate 2 mg Q4HPRN PRN IV 02/17/25 11:45 02/19/25 14:01 2 MG laboratory and microbiology Laboratory Tests 02/10/25 10:13 02/08/25 06:24 Test 02/10/25 10:13 Range/Units Serum Glucose 89 74-106 mg/dL Microbiology Date/Time Source Procedure Growth Status 02/08/25 01:30 Nose MRSA Screen - Final Methicillin Resistant S.aureus Complete 02/07/25 12:12 Blood Blood Culture - Final NO GROWTH AFTER 5 DAYS OF INCUBATION. 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
[2025-02-19 21:00] VITALS: BP 130/88; PULSE 64; RESP 17; TEMP 98.2; O2SAT 94
[2025-02-20] MEDS: PIPERACILLIN-TAZOB 3.375GM 100 ML IV SCH (00:23)
[2025-02-20 00:46] VITALS: BP 121/82; PULSE 77; RESP 18; TEMP 98.6; O2SAT 97
[2025-02-20 08:00] VITALS: BP 117/56; PULSE 70; PULSE 73; RESP 18; TEMP 98; O2SAT 91
[2025-02-20 12:00] VITALS: BP_SYST 117; BP_SYST 118; BP_DIAS 56; BP_DIAS 62; BP_DIAS 83; PULSE 57; PULSE 73; PULSE 83; RESP 16; RESP 18; TEMP 97.4; TEMP 98; TEMP 98.4; O2SAT 100; O2SAT 91; O2SAT 94
[2025-02-20 16:05] VITALS: BP 108/78; PULSE 76; RESP 18; TEMP 98; O2SAT 93
[2025-02-20 21:00] VITALS: BP 117/79; PULSE 80; RESP 18; TEMP 97.6; O2SAT 94
[2025-02-21 01:00] VITALS: BP 119/90; PULSE 70; RESP 16; TEMP 97.4; O2SAT 93
[2025-02-21 05:00] VITALS: BP 108/74; PULSE 76; RESP 16; TEMP 97.7; O2SAT 92
[2025-02-21 08:00] VITALS: PULSE 70; RESP 20
[2025-02-21 09:00] VITALS: BP 98/75; PULSE 74; RESP 18; TEMP 98.9; O2SAT 95
[2025-02-21 13:00] VITALS: BP 110/72; PULSE 68; RESP 19; TEMP 99.5; O2SAT 94
[2025-02-21 17:00] VITALS: BP 104/70; PULSE 69; RESP 18; TEMP 97.7; O2SAT 92
[2025-02-22 08:00] VITALS: PULSE 65; RESP 19
[2025-02-22 12:25] VITALS: BP 122/72; PULSE 73; RESP 18; TEMP 98.4; O2SAT 95
[2025-02-22 17:00] VITALS: BP 127/78; PULSE 66; RESP 18; TEMP 98.5; O2SAT 92
[2025-02-22 21:00] VITALS: BP 122/75; PULSE 77; RESP 16; TEMP 98.5; O2SAT 99
[2025-02-23 08:00] VITALS: PULSE 78; RESP 17; O2SAT 94
[2025-02-23 08:39] VITALS: BP 121/71; PULSE 78; RESP 17; TEMP 98.7; O2SAT 94
[2025-02-23 12:30] VITALS: BP 109/75; PULSE 72; RESP 19; TEMP 97.7; O2SAT 94
[2025-02-23 18:45] VITALS: BP 109/75; PULSE 72; RESP 19; TEMP 36.5; O2SAT 94
[2025-02-23 20:00] VITALS: PULSE 73; RESP 18; O2SAT 95
[2025-02-23 21:00] VITALS: BP 122/77; PULSE 73; RESP 18; TEMP 98; O2SAT 95
== END 2025-02-23 21:40 | disposition home or self-care (01) | DRG 720 ==
LOC: EDBD 11:22 → ER 11:22 → OVERFLOW 16:06 → WEST WING 23:52 → CENTRAL 02-08 19:55 → WEST WING 02-11 15:28 → EAST 02-23 11:25
PROVIDERS: ADMIT Internal Medicine; ATTEND Internal Medicine
DX: A41.9 Sepsis, unspecified organism (principal); E66.9 Obesity, unspecified; L03.317 Cellulitis of buttock; F20.9 Schizophrenia, unspecified; Z88.5 Allergy status to narcotic agent; Z88.1 Allergy status to other antibiotic agents; Z83.3 Family history of diabetes mellitus; Z68.38 Body mass index [BMI] 38.0-38.9, adult; Z91.199 Patient's noncompliance with other medical treatment and regimen due to unspecified reason
CPT/HCPCS: 36415; 71045; 80048; 80053; 81001; 82565; 83605; 85025; 85610; 85730; 87040; 87081; 97163; 99291; 99292; G0378; J2405; J2543